=== PATIENT | female | born 2000 | race Caucasian/White ===

== ENCOUNTER 2025-02-10 22:30 | Emergency (ER) | payer SELFPAY ==
[~2025-02-10] VITALS: Ht 153.7 cm; Wt 70.3 kg
[2025-02-10 22:46] VITALS: O2SAT 99
[2025-02-10] MEDS ORDERED: AMOX1TAB16 MT (23:19)
[2025-02-10] MEDS ORDERED: IBUP-1455 MT (23:19)
[2025-02-10] MEDS ORDERED: PSEU-224 MT (23:19)
[2025-02-10] MEDS ORDERED: FLUT9.9S BOTHNSTRLS (23:19)
[2025-02-11 00:10] VITALS: BP 112/82; PULSE 98; RESP 16; TEMP 37.8; O2SAT 99
== END 2025-02-11 00:18 | disposition home or self-care (01) ==
LOC: ER 22:30
DX: H66.92 Otitis media, unspecified, left ear (principal); R05.9 Cough, unspecified; R09.81 Nasal congestion
CPT/HCPCS: 99283